=== PATIENT | female | born 1960 | race Caucasian/White ===

== ENCOUNTER 2018-04-04 15:19 | Emergency (ER) ==
[2018-04-04 15:27] VITALS: BP 154/85; TEMP 99.2; BMI 30.9
--- NOTE | 2018-04-04 16:14 | DI ---
EXAM: Left hand, three view. HISTORY: Pain. Injury to index finger. COMPARISON: None. FINDINGS: AP, lateral and oblique views of the left hand. There is a comminuted fracture through the distal phalanx of the second digit. A bandage is in place. There are multiple fragments. There are no lytic or blastic lesions. Soft tissues are normal. Bone mineralization is normal. There are no significant degenerative changes. IMPRESSION: Comminuted mildly displaced fracture of the distal tuft of the left second finger. Ridge elate for laceration.
--- NOTE | 2018-04-04 16:36 | ED.PDOC ---
General ED Provider: Dr. DK CLEMENT Chief Complaint: Finger Pain/Injury Stated Complaint: Injured lt index finger. Was attempting to uncoil a device for cross bow when the metal cord released and went around her lt index finger- causing partial amputation/. Moderate bleeding. Patient here with her handicaped who was with him Time Seen by Physician: 15:25 Mode of Arrival: Walk-In Information Source: Patient Exam Limitations: Clinical condition Referred to ED by: PCP Nursing and Triage Documentation Reviewed and Agree: Yes Does patient meet sepsis criteria?: No System Inflammatory Response Syndrome: Not Applicable Sepsis Protocol: For patient's 13 years and over: Temp is 96.8 and below OR 101 and greater Pulse >90 BPM Resp >20/minute Acutely Altered Mental Status Are patient's symptoms suggestive of a new infection, such as: -Pneumonia -Skin, Soft Tissue -Endocarditis -UTI -Bone, Joint Infection -Implantable Device -Acute Abdominal Infection -Wound Infection -Meningitis -Blood Stream Catheter Infection -Unknown Musculoskeletal Complaint Exam - Hand/Wrist Complaint/Exam Location of Pain: Reports: Left, Hand, Digit #1 Mechanism of Injury: Reports: Trauma Onset/Duration: today Symptoms Are: Still present Onset of Pain: Reports: Immediate Initial Severity: Severe Current Severity: Moderate Location: Reports: Diffuse Character: Reports: Sharp, Dull, Aching, Throbbing Alleviating: Reports: Elevation Aggravating: Reports: Movement Associated Signs and Symptoms: Reports: Swelling, Redness Related History: Reports: Similar episode Dominant Hand: Right Related Surgical History: Reports: None Hand/Wrist Findings: Present: Swelling, Laceration, Nail avulsion (injury), Erythema, Warmth Tenderness: Present: Phalanx Differential Diagnoses: Other (lacertation) Review of Systems - Review Of Systems Constitutional: Reports: No symptoms Eyes: Reports: No symptoms Ears, Nose, Mouth, Throat: Reports: No symptoms Respiratory: Reports: No symptoms Cardiac: Reports: No symptoms GI: Reports: No symptoms : Reports: No symptoms Musculoskeletal: Reports: Joint pain, Joint swelling Skin: Reports: No symptoms Neurological: Reports: No symptoms Endocrine: Reports: No symptoms Hematologic/Lymphatic: Reports: No symptoms All Other Systems: Reviewed and Negative Past Medical History - Past Medical History Previously Healthy: Yes Endocrine: Reports: None Cardiovascular: Reports: Hypertension Respiratory: Reports: None Hematological: Reports: None Gastrointestinal: Reports: None Genitourinary: Reports: None Neuro/Psych: Reports: None Musculoskeletal: Reports: None Cancer: Reports: None Last Menstrual Period: hysterectomy - Surgical History General Surgical History: Reports: Unknown - Family History Family History: Reports: None, Unknown - Social History Smoking Status: Former smoker Alcohol Screening: Occasionally - Immunizations Tetanus Shot up to Date: Yes (last month) Physical Exam - Physical Exam Appearance: Well-appearing, No pain distress, Well-nourished Eyes: SHANKAR, EOMI, Conjunctiva clear ENT: Ears normal, Nose normal, Oropharynx normal Respiratory: Airway patent, Breath sounds clear, Breath sounds equal, Respirations nonlabored Cardiovascular: RRR, Pulses normal, No rub, No murmur GI/: Soft, Nontender, No masses, Bowel sounds normal, No Organomegaly Musculoskeletal: Normal strength, ROM intact, No edema, No calf tenderness, Limited ROM, Edema Skin: Warm, Dry, Normal color Neurological: Sensation intact, Motor intact, Reflexes intact, Cranial nerves intact, Alert, Oriented Psychiatric: Affect appropriate, Mood appropriate Critical Care Note - Critical Care Note Total Time (mins): 60 Course - Course Hematology/Chemistry: 04/04/18 16:50 04/04/18 16:50 Orders, Labs, Meds: Lab Review 04/04/18 04/04/18 16:50 16:50 WBC 4.58 L RBC 4.20 Hgb 12.4 Hct 37.3 MCV 88.8 MCH 29.5 MCHC 33.2 RDW Coeff of Angela 13.7 Plt Count 210 Immature Gran % (Auto) 0.2 Neut % (Auto) 49.9 Lymph % (Auto) 38.9 King % (Auto) 9.2 Eos % (Auto) 1.1 Baso % (Auto) 0.7 Immature Gran # (Auto) 0.0 Neut # (Auto) 2.3 Lymph # (Auto) 1.8 King # (Auto) 0.4 Eos # (Auto) 0.1 Baso # (Auto) 0.0 Sodium 140.1 Potassium 3.73 Chloride 105.2 Carbon Dioxide 31.2 H Anion Gap 7.43 BUN 19.2 H Creatinine 0.87 Estimated GFR (MDRD) 67.00 BUN/Creatinine Ratio 22.06 Glucose 101.2 Calcium 8.96 Orders Category Date Time Status IV [ED IV/MEDIPORT/POWERPORT] .ONCE EMERGENCY 04/04/18 16:41 Active BMP [BASIC METABOLIC PANEL] Stat LAB 04/04/18 16:50 Completed CBC W/ AUTO DIFF Stat LAB 04/04/18 16:50 Completed 0.9 % Sodium Chloride [Saline Flush] MEDS 04/04/18 16:41 Discontinued 1 syr IVF PRN PRN Cefazolin Sodium [Ancef] MEDS 04/04/18 17:09 Discontinued 1 gm .ROUTE .STK-MED ONE Cefazolin Sodium [Ancef] 1 gm MEDS 04/04/18 16:42 Discontinued 0.9 % Sodium Chloride [Sodium Chloride] 100 ml IV ONCE Lidocaine HCl/Pf [Lidocaine HCl 1% Sdv] MEDS 04/04/18 17:27 Discontinued 5 ml .ROUTE .STK-MED ONE Lidocaine HCl/Pf [Lidocaine HCl 1% Sdv] MEDS 04/04/18 17:35 Discontinued 5 ml .ROUTE .STK-MED ONE Lidocaine HCl/Pf [Lidocaine HCl 1% Sdv] MEDS 04/04/18 16:43 Discontinued 5 ml SUBCUT ONCE STA FINGER(S), LEFT MIN 2V Stat RADS 04/04/18 15:47 Completed Medications Discontinued Medications Generic Name Dose Route Start Last Admin Trade Name Freq PRN Reason Stop Dose Admin Cefazolin Sodium 1 gm/ Sodium 100 mls @ 100 mls/hr 04/04/18 16:42 04/04/18 17 :19 Chloride IV 04/04/18 17:41 100 mls/hr ONCE STA Administration Lidocaine HCl 5 ml 04/04/18 16:43 04/04/18 17:36 Lidocaine Hcl 1% Sdv SUBCUT 04/04/18 16:44 Not Given ONCE STA Sodium Chloride 1 syr 04/04/18 16:41 04/04/18 17:19 Saline Flush IVF 1 syr PRN PRN Administration To flush IV Vital Signs: Temp Pulse Resp BP Pulse Ox 04/04/18 15:22 99.2 F 88 20 154/85 H 95 Departure - Departure Time of Disposition: 18:25 Disposition: HOME SELF-CARE Discharge Problem: Laceration of left index finger with damage to nail, Avulsion fracture of distal phalanx of finger Instructions: Care For Your Stitches (ED), Laceration (ED) Condition: Good Pt referred to PMD for follow-up: Yes (Dr Oliver Vanegas) IPMP verified?: No Additional Instructions: Follow up with Dr Boyd at [facility] tomorrow in clinic per instructions by Dr Green [phone] Take meds as directed Prescriptions: Hydrocodone/Acetaminophen [[place] 5-325 Tablet] 1 - 2 each PO Q4HR PRN #20 tablet PRN Reason: severe pain index finger Cephalexin [Keflex] 500 mg PO TID #30 capsule Allergies/Adverse Reactions: Allergies No Known Allergies Allergy (Unverified 04/04/18 15:29) Home Medications: Ambulatory Orders Cephalexin [Keflex] 500 mg PO TID #30 capsule 04/04/18 Hydrocodone/Acetaminophen [[place] 5-325 Tablet] 1 - 2 each PO Q4HR PRN #20 tablet 04/04/18 Lisinopril 5 mg PO DAILY 04/04/18 Meloxicam 15 mg PO DAILY 04/04/18 Disposition Discussed With: Patient, Family
[2018-04-04] MEDS ORDERED: ANCEF 1 GM in SODIUM CHLORIDE 100 ML IV STA (16:42)
[2018-04-04] MEDS ORDERED: ANCEF ONE (17:09)
[2018-04-04] MEDS: LIDOCAINE HCL 1% SDV SUBCUT STA ×2 (17:19→17:36)
[2018-04-04] MEDS ORDERED: LIDOCAINE HCL 1% SDV ONE ×2 (17:27→17:35)
== END 2018-04-04 19:05 | disposition home or self-care (01) ==
LOC: ED 15:19
DX: S61.311A Laceration without foreign body of left index finger with damage to nail, initial encounter (principal); S62.631A Displaced fracture of distal phalanx of left index finger, initial encounter for closed fracture; W22.8XXA Striking against or struck by other objects, initial encounter
CPT/HCPCS: 36415; 80048; 85025; 96365; 99283